=== PATIENT | female | born 1950 | race Caucasian/White ===

== ENCOUNTER 2018-09-06 11:11 | Outpatient (CLI) | payer OTHER ==
[2018-09-06] MEDS ORDERED: diphenhydrAMINE 25 MG CAP PO ONE (11:45)
[2018-09-06] MEDS ORDERED: ACETAMINOPHEN 325 MG TAB PO ONE (11:45)
[2018-09-06 12:41] VITALS: BP 146/64
== END 2018-09-06 16:20 | disposition home or self-care (01) ==
LOC: MERGE 11:11 → F1NOP 11:11
PROVIDERS: ATTEND Internal Medicine Hematology & Oncology
PROC: 30253N1 (ICD-10-PCS; principal; 2018-09-06)
DX: C50.919 Malignant neoplasm of unspecified site of unspecified female breast (principal)
CPT/HCPCS: P9016 ×2; P9040

== ENCOUNTER → 2018-09-27 | Outpatient (CLI) | payer OTHER, MEDICARE ==
[~2018-09-27] MED LIST: LIDOCAINE 1% 300 MG/30 ML SDV ONE
== END ==
LOC: FIMAGING 10:06
PROVIDERS: ATTEND Internal Medicine Hematology & Oncology
PROC: 0W9B3ZZ Drainage of Left Pleural Cavity, Percutaneous Approach (ICD-10-PCS; principal; 2018-09-27)
DX: J90 Pleural effusion, not elsewhere classified (principal); C50.919 Malignant neoplasm of unspecified site of unspecified female breast; C79.51 Secondary malignant neoplasm of bone

== ENCOUNTER 2018-10-27 13:00 | Outpatient (CLI) | payer OTHER, MEDICARE | END 2018-10-27 16:30 | disposition home or self-care (01) | LOC: FOBOP 13:00 | PROVIDERS: ATTEND Internal Medicine Hematology & Oncology | PROC: 30233N1 Transfusion of Nonautologous Red Blood Cells into Peripheral Vein, Percutaneous Approach (ICD-10-PCS; principal; 2018-10-27) | DX: C50.919 Malignant neoplasm of unspecified site of unspecified female breast (principal); C79.51 Secondary malignant neoplasm of bone; D64.81 Anemia due to antineoplastic chemotherapy | CPT/HCPCS: 36430; P9016; P9040 ==